=== PATIENT | female | born 1950 | race Caucasian/White ===

== ENCOUNTER 2021-03-19 10:28 | Emergency (ER) | payer MEDICARE, OTHER ==
[2021-03-19] MEDS ORDERED: LEVOXYL100 MCG PO (10:50)
[2021-03-19] MEDS ORDERED: SUNMARK OMEPRAZ20 MG PO (10:50)
[2021-03-19] MEDS ORDERED: LISINOPRIL40 MG PO (10:50)
[2021-03-19] MEDS ORDERED: SIMVASTATIN80 MG PO (10:51)
[2021-03-19 10:52] LABS: BASO # 0.01 (0.02-0.10); EOS # 0.01 (0.04-0.40); EOS % 0.1 % (1.0-5.0); HEMATOCRIT 37.1 % (37.0-47.0); HEMOGLOBIN 11.7 g/dL (12.5-16.0); LYMPH# 2.48 (1.50-4.00); MEAN CELL VOLUME 86 fl (78-100); MEAN CORPUSCULAR HEMOGLOBIN 27 pg (27-31); MEAN CORPUSCULAR HGB CONC 32 g/dL (33-37); MEAN PLATELET VOLUME 10.7 fl (7.4-10.4); MONO # 1.04 (0.20-0.80); NEU # 7.78 (1.40-6.50); PLATELET COUNT 326 K/mm3 (130-400); RED BLOOD COUNT 4.34 M/mm3 (4.10-5.30); RED CELL DISTRIBUTION WIDTH 16.8 % (11.5-14.5); WHITE BLOOD COUNT 11.4 K/mm3 (4.8-10.8)
[2021-03-19] MEDS ORDERED: PERCOCET 325 MG1 TA3 (10:52)
[2021-03-19 11:06] LABS: POTASSIUM 3.9 mmol/L (3.5-5.1); SODIUM 138 mmol/L (136-145)
[2021-03-19 11:08] LABS: CALCIUM 10.2 mg/dL (8.3-10.5)
[2021-03-19 11:09] LABS: GLUCOSE 163 mg/dL (65-105); TOTAL PROTEIN 7.1 g/dL (6.2-8.1)
[2021-03-19 11:11] LABS: TOTAL BILIRUBIN 0.5 mg/dL (0.2-1.2)
[2021-03-19 11:14] LABS: AST-SGOT 142 U/L (5-34)
[2021-03-19 11:15] LABS: ALT/SGPT 54 U/L (0-55)
[2021-03-19 11:20] LABS: CARBON DIOXIDE 17 mmol/L (23-31)
[2021-03-19 11:21] LABS: PROTHROMBIN TIME 9.4 SECONDS (9.0-12.0)
[2021-03-19 11:22] LABS: D-DIMER 0.71 mg/L FEU (0.15-0.50); TROPONIN-I < 0.03 ng/mL (<0.030)
[2021-03-19 13:03] LABS: PH-URINE 6.5 (5.0 - 8.0); URINE APPEARANCE CLEAR; URINE BILIRUBIN NEGATIVE (NEGATIVE); URINE BLOOD NEGATIVE (NEGATIVE); URINE COLOR YELLOW; URINE GLUCOSE NEGATIVE (NEGATIVE); URINE KETONE NEGATIVE (NEGATIVE); URINE LEUKOCYTE ESTERASE NEGATIVE (NEGATIVE); URINE NITRATE NEGATIVE (NEGATIVE); URINE PROTEIN(semi-quant) TRACE mg/dL (NEGATIVE); URINE UROBILINOGEN NORMAL (NORMAL)
[2021-03-19 13:49] VITALS: BP 134/802
== END 2021-03-19 13:41 | disposition home or self-care (01) ==
LOC: ED 10:28
PROVIDERS: Physician Assistant
DX: R10.11 Right upper quadrant pain (principal); R10.13 Epigastric pain; R07.89 Other chest pain; E86.0 Dehydration; K21.9 Gastro-esophageal reflux disease without esophagitis; E03.9 Hypothyroidism, unspecified; G89.29 Other chronic pain; M54.5 Low back pain; M25.551 Pain in right hip; Z79.899 Other long term (current) drug therapy; Z79.890 Hormone replacement therapy; Z79.891 Long term (current) use of opiate analgesic; Z20.822 Contact with and (suspected) exposure to COVID-19
CPT/HCPCS: Q9967